=== PATIENT | male | born 1960 | race Caucasian/White ===

== ENCOUNTER 2017-10-24 06:00 | Observation (INO) | payer BC ==
[2017-10-24] MEDS ORDERED: LIDOCAINE 1% (MDV) 20 ML INJ ×2 (07:00→07:01)
[2017-10-24 07:09] LABS: ADD MAN DIFF? NO
[2017-10-24 07:14] LABS: INR 0.94; PROTIME 12.7 Sec (11.9-14.9)
[2017-10-24 07:15] LABS: PARTIAL THROMBOPLASTIN TIME 26.1 Sec (25.0-35.0)
[2017-10-24 07:16] LABS: BASOPHILS % 0.7 % (0.0-2.0); EOSINOPHILS # 0.3 10^3/ul (0.0-0.5); EOSINOPHILS % 4.8 % (0.0-7.0); HEMATOCRIT 43.9 % (42.0-52.0); HEMOGLOBIN 14.3 g/dl (14.0-18.0); LYMPHOCYTES # 1.3 10^3/ul (0.8-2.9); LYMPHOCYTES % 21.4 % (15.0-51.0); MEAN CORPUSCULAR HEMOGLOBIN 28.1 pg (29.0-33.0); MEAN CORPUSCULAR HGB CONC 32.6 g/dl (32.0-37.0); MEAN CORPUSCULAR VOLUME 86.4 fl (82.0-101.0); MEAN PLATELET VOLUME 9.8 fl (7.4-10.4); MONOCYTE # 0.6 10^3/ul (0.3-0.9); MONOCYTES % 10.5 % (0.0-11.0); NEUTROPHIL # 3.7 10^3/ul (1.6-7.5); NEUTROPHILS % 62.3 % (39.0-77.0); PLATELET COUNT 207 10^3/UL (140-415); RED BLOOD COUNT 5.08 10^6/ul (4.70-6.10); RED CELL DISTRIBUTION WIDTH 15.5 % (11.5-14.5)
[2017-10-24 07:16] LABS: WHITE BLOOD COUNT 5.9 10^3/ul (4.8-10.8)
[2017-10-24 07:17] LABS: ALANINE AMINOTRANSFERASE 59 IU/L (13-69); ALBUMIN 4.2 g/dl (3.3-4.9); ALBUMIN/GLOBULIN RATIO 1.13; ALKALINE PHOSPHATASE 217 IU/L (42-121); ANION GAP 14 (8-16); ASPARTATE AMINO TRANSFERASE 48 IU/L (15-46); BILIRUBIN,INDIRECT 0.5 mg/dl (0-1.1); BILIRUBIN,TOTAL 0.5 mg/dl (0.2-1.3); CARBON DIOXIDE 26 mmol/L (21-31); CHLORIDE 107 mmol/L (97-110); CHOL/HDL RATIO 3.6 RATIO; CHOLESTEROL 170 mg/dl (100-200); CREATINE KINASE 84 IU/L (23-200); GLUCOSE 113 mg/dl (70-220); HDL CHOLESTEROL 46 mg/dl (30-78); LDL CHOLESTEROL,CALCULATED 92 mg/dl; TOTAL PROTEIN 7.9 g/dl (6.1-8.1); TRIGLYCERIDES 159 mg/dl (0-149)
[2017-10-24 07:19] LABS: BLOOD UREA NITROGEN 18 mg/dl (7-20); CALCIUM 9.3 mg/dl (8.4-10.2); CREATININE 1.15 mg/dl (0.61-1.24); POTASSIUM 4.3 mmol/L (3.5-5.1); SODIUM 143 mmol/L (135-144)
[2017-10-24] MEDS ORDERED: BIVALIRUDIN 250MG /NS 50 ML 50 ML IVPB (07:20)
[2017-10-24] MEDS ORDERED: FENTAnyl 50 MCG/ML VIAL (07:21)
[2017-10-24] MEDS ORDERED: MIDAZOLAM 1 MG/ML 2 ML INJ (07:21)
[2017-10-24 07:25] LABS: CK INDEX 2.6
[2017-10-24 07:27] LABS: CK-MB 2.19 ng/ml (0.0-2.4)
[2017-10-24 07:35] LABS: TROPONIN-I 0.048 ng/ml (0.000-0.120)
[2017-10-24] MEDS ORDERED: CLOPIDOGREL 300 MG TAB (08:20)
[2017-10-24] MEDS ORDERED: IOHEXOL 350MG/ML 50 ML BTL (08:21)
[2017-10-24] MEDS ORDERED: IODIXANOL LOCM 50 ML BTL (08:21)
[2017-10-24] MEDS: ASPIRIN (EC) 81 MG TAB PO (09:00)
[2017-10-24] MEDS: CLOPIDOGREL 75 MG TAB PO (09:00)
[2017-10-24] MEDS: DIGOXIN 0.125 MG TAB PO (12:44)
[2017-10-24] MEDS: FUROSEMIDE 40 MG TAB PO (12:44)
[2017-10-24] MEDS: LOSARTAN 25 MG TAB PO (12:44)
[2017-10-24] MEDS: SOD CHLORIDE 0.9% 1,000 ML IV (12:45)
[2017-10-24] MEDS: SPIRONOLACTONE 25 MG TAB PO (12:45)
[2017-10-24] MEDS: ATORVASTATIN 40 MG TAB PO (20:44)
[2017-10-25 05:44] LABS: ADD MAN DIFF? NO
[2017-10-25 05:48] LABS: BASOPHILS % 0.6 % (0.0-2.0); EOSINOPHILS # 0.3 10^3/ul (0.0-0.5); EOSINOPHILS % 3.7 % (0.0-7.0); HEMOGLOBIN 13.9 g/dl (14.0-18.0); LYMPHOCYTES # 1.3 10^3/ul (0.8-2.9); LYMPHOCYTES % 17.9 % (15.0-51.0); MEAN CORPUSCULAR HEMOGLOBIN 27.9 pg (29.0-33.0); MEAN CORPUSCULAR HGB CONC 32.3 g/dl (32.0-37.0); MEAN CORPUSCULAR VOLUME 86.3 fl (82.0-101.0); MEAN PLATELET VOLUME 10.2 fl (7.4-10.4); MONOCYTE # 0.7 10^3/ul (0.3-0.9); MONOCYTES % 9.4 % (0.0-11.0); NEUTROPHILS % 68.1 % (39.0-77.0); PLATELET COUNT 177 10^3/UL (140-415); RED BLOOD COUNT 4.98 10^6/ul (4.70-6.10); RED CELL DISTRIBUTION WIDTH 15.9 % (11.5-14.5)
[2017-10-25 05:48] LABS: WHITE BLOOD COUNT 7.3 10^3/ul (4.8-10.8)
[2017-10-25 06:28] LABS: ANION GAP 16 (8-16); BLOOD UREA NITROGEN 19 mg/dl (7-20); CALCIUM 9.4 mg/dl (8.4-10.2); CARBON DIOXIDE 31 mmol/L (21-31); CHLORIDE 98 mmol/L (97-110); CREATININE 1.38 mg/dl (0.61-1.24); GLUCOSE 104 mg/dl (70-220); MAGNESIUM 1.8 mg/dl (1.7-2.5); PHOSPHORUS 4.3 mg/dl (2.5-4.9); POTASSIUM 4.6 mmol/L (3.5-5.1); SODIUM 140 mmol/L (135-144)
[2017-10-25] MEDS: CLOPIDOGREL 75 MG TAB PO (08:19)
[2017-10-25] MEDS: ESCITALOPRAM 10 MG TAB PO (08:20)
[2017-10-25] MEDS: SPIRONOLACTONE 25 MG TAB PO (08:21)
[2017-10-25] MEDS: ASPIRIN (EC) 81 MG TAB PO (08:21)
[2017-10-25] MEDS: DIGOXIN 0.125 MG TAB PO (12:11)
[2017-10-26] MEDS ORDERED: FUROSEMIDE 40 MG TAB PO (09:00)
== END 2017-10-25 12:42 | disposition home or self-care (01) ==
LOC: SDS 06:00 → REC 08:44 → ICU 10:20
DX: I25.119 Atherosclerotic heart disease of native coronary artery with unspecified angina pectoris (principal); I12.9 Hypertensive chronic kidney disease with stage 1 through stage 4 chronic kidney disease, or unspecified chronic kidney disease; N18.9 Chronic kidney disease, unspecified; E78.5 Hyperlipidemia, unspecified; F32.9 Major depressive disorder, single episode, unspecified; D64.9 Anemia, unspecified
CPT/HCPCS: 80048; 80053; 80061; 82550; 82553; 83735; 84100; 84484; 85025; 85610; 85730; 87081; 93005; 93458; 99217